=== PATIENT | male | born 1975 | race Caucasian/White ===

== ENCOUNTER 2017-12-16 16:10 | Observation (INO) | payer OTHER ==
[~2017-12-16] VITALS: Ht 180.3 cm; Wt 89.9 kg
[~2017-12-16 16:10] MED LIST: IBUP1TAB5 PO; PRIL20TA2 PO
[2017-12-16] MEDS ORDERED: NALOXONE HCL 0.4 MG/ML AMP IV PUSH PRN (17:15)
[2017-12-16] MEDS ORDERED: MAGNESIUM HYDROXIDE SUSP 30 ML CUP PO PRN (17:15)
[2017-12-16] MEDS ORDERED: SODIUM CHLORIDE 0.9% FLUSH 10 ML FLUSH IV FLUSH PRN (17:15)
--- NOTE | 2017-12-16 17:20 | HHI.HP ---
[facility] Primary [facility] Physician No Primary Care Physician Admission Diagnosis Diagnoses: Chief Complaint: Abdominal pain with hematemesis Travel History International Travel<30 Days: No Contact w/Intl Traveler <30 Da: No Traveled to Known Affected Are: No History of Present Illness This is a 42-year-old Male with a history of esophageal stricture status post stricture dilation several years ago. The patient presents today after having a large meal of pizza and soda with following, pressure in the chest relieved by vomiting which amounted to hematemesis yesterday. Overnight the patient has had no symptoms but this morning he did have large black stools. He notes no further chest pain if she felt better. He does have a history of taking Prilosec as well as NSAIDs. Patient came to the emergency room for further evaluation. His hemoglobin is stable. Patient is recommended for further evaluation by GI Review of Systems Constitutional: DENIES: Diaphoretic episodes, Fatigue, Fever, Weight gain, Weight loss, Chills, Dizziness, Change in appetite, Night Sweats Endocrine: DENIES: Heat/cold intolerance, Polydipsia, Polyuria, Polyphagia Eyes: DENIES: Blurred vision, Diplopia, Eye inflammation, Eye pain, Vision loss , Photosensitivity, Double Vision Ears, nose, mouth, throat: DENIES: Tinnitus, Hearing loss, Vertigo, Nasal discharge, Oral lesions, Throat pain, Hoarseness, Ear Pain, Running Nose, Epistaxis, Sinus Pain, Toothache, Odynophagia Respiratory: DENIES: Apneas, Cough, Snoring, Wheezing, Hemoptysis, Sputum production, Shortness of breath Cardiovascular: DENIES: Chest pain, Palpitations, Syncope, Dyspnea on Exertion , PND, Lower Extremity Edema, Orthopnea, Claudication Gastrointestinal: COMPLAINS OF: Abdominal pain, Black stools, DENIES: Bloody stools, Constipation, Diarrhea, Nausea, Vomiting, Difficulty Swallowing, Anorexia Genitourinary: DENIES: Sexual dysfunction, Urinary frequency, Urinary incontinence, Urgency, Hematuria, Dysuria, Nocturia, Penile Discharge, Testicular Pain, Testicular Swelling Musculoskeletal: DENIES: Joint pain, Muscle aches, Stiffness, Joint Swelling, Back pain, Neck pain Integumentary: DENIES: Abnormal pigmentation, Nail changes, Pruritus, Rash Hematologic/lymphatic: DENIES: Bruising, Lymphadenopathy Immunologic/allergic: DENIES: Eczema, Urticaria Neurologic: DENIES: Abnormal gait, Headache, Localized weakness, Paresthesias, Seizures, Speech Problems, Tremor, Poor Balance Psychiatric: DENIES: Anxiety, Confusion, Mood changes, Depression, Hallucinations, Agitation, Suicidal Ideation, Homicidal Ideation, Delusions Except as stated in HPI: all other systems reviewed are Neg Past Family Social History Past Medical History History of esophageal stricture and dyspepsia and reflux Past Surgical History Tonsils Lung surgery Reported Medications Reviewed in the EMR Allergies: Coded Allergies: No Known Allergies (Unverified , 12/16/17) Active Ordered Medications Reviewed in the EMR Family History Mother passed from unknown causes, father is alive but has lung cancer Social History Quit tobacco 20 years ago, alcohol 6 pack daily This with his girlfriend Is employed as a echocardiography tech Physical Exam Physical Exam GENERAL: This is a well-nourished, well-developed patient, in no apparent distress. SKIN: No rashes, ecchymoses or lesions. Cool and dry. HEAD: Atraumatic. Normocephalic. No temporal or scalp tenderness. EYES: Pupils equal round and reactive. Extraocular motions intact. No scleral icterus. No injection or drainage. ENT: Nose without bleeding, purulent drainage or septal hematoma. Throat without erythema, tonsillar hypertrophy or exudate. Uvula midline. Airway patent. NECK: Trachea midline. No JVD or lymphadenopathy. Supple, nontender, no meningeal signs. CARDIOVASCULAR: Regular rate and rhythm without murmurs, gallops, or rubs. RESPIRATORY: Clear to auscultation. Breath sounds equal bilaterally. No wheezes , rales, or rhonchi. GASTROINTESTINAL: Abdomen soft, non-tender, nondistended. No hepato-splenomegaly , or palpable masses. No guarding. MUSCULOSKELETAL: Extremities without clubbing, cyanosis, or edema. No joint tenderness, effusion, or edema noted. No calf tenderness. Negative Homans sign bilaterally. NEUROLOGICAL: Awake and alert. Cranial nerves II through XII intact. Motor and sensory grossly within normal limits. Five out of 5 muscle strength in all muscle groups. Normal speech. Caprini VTE Risk Assessment Caprini VTE Risk Assessment: No/Low Risk (score <= 1) Caprini Risk Assessment Model Point Value = 1 Point Value = 2 Point Value = 3 Point Value = 5 Age 41-60 Minor surgery BMI > 25 kg/m2 Swollen legs Varicose veins or History of unexplained or recurrent spontaneous Oral contraceptives or hormone replacement Sepsis (< 1 month) Serious lung disease, including pneumonia (< 1 month) Abnormal pulmonary function Acute myocardial infarction Congestive heart failure (< 1 month) History of inflammatory bowel disease Medical patient at bed rest Age 61-74 Arthroscopic surgery Major open surgery (> 45 min) Laparoscopic surgery (> 45 min) Malignancy Confined to bed (> 72 hours) Immobilizing plaster cast Central venous access Age >= 75 History of VTE Family history of VTE Factor V Leiden Prothrombin [id number] Lupus anticoagulant Anticardiolipin antibodies Elevated serum homocysteine Heparin-induced thrombocytopenia Other congenital or acquired thrombophilia Stroke (< 1 month) Elective arthroplasty Hip, pelvis, or leg fracture Acute spinal cord injury (< 1 month) Prophylaxis Regimen Total Risk Factor Score Risk Level Prophylaxis Regimen 0-1 Low Early ambulation 2 Moderate Order ONE of the following: *Sequential Compression Device (SCD) *Heparin 5000 units SQ BID 3-4 Higher Order ONE of the following medications: *Heparin 5000 units SQ TID *Enoxaparin/Lovenox 40 mg SQ daily (WT < 150 kg, CrCl > 30 mL/min) *Enoxaparin/Lovenox 30 mg SQ daily (WT < 150 kg, CrCl > 10-29 mL/min) *Enoxaparin/Lovenox 30 mg SQ BID (WT < 150 kg, CrCl > 30 mL/min) AND/OR *Sequential Compression Device (SCD) 5 or more Highest Order ONE of the following medications: *Heparin 5000 units SQ TID (Preferred with Epidurals) *Enoxaparin/Lovenox 40 mg SQ daily (WT < 150 kg, CrCl > 30 mL/min) *Enoxaparin/Lovenox 30 mg SQ daily (WT < 150 kg, CrCl > 10-29 mL/min) *Enoxaparin/Lovenox 30 mg SQ BID (WT < 150 kg, CrCl > 30 mL/min) AND *Sequential Compression Device (SCD) Assessment and Plan Problem List: (1) GI bleed ICD Code: K92.2 - Gastrointestinal hemorrhage, unspecified Plan: Patient take NSAIDs regularly With a history of dyspepsia and on a proton pump inhibitor We'll continue proton pump inhibitor patient avoid NSAIDs, GI consult for EGD Follow hemoglobin Code Status full code Discussed Condition With patient er Erin Schuster MD Dec 16, 2017 17:20
[2017-12-16 18:00] VITALS: BP 122/83; PULSE 84; RESP 16; TEMP 99; O2SAT 98
[2017-12-16] MEDS: SODIUM CHLOR 0.9% 1000 ML INJ 1,000 ML IV SCH (18:45)
[2017-12-16 20:00] VITALS: BP 115/76; PULSE 88; RESP 21; TEMP 98.2; O2SAT 100
[2017-12-16] MEDS: SODIUM CHLORIDE 0.9% FLUSH 10 ML FLUSH IV FLUSH SCH (21:08)
[2017-12-16] MEDS: PANTOPRAZOLE SOD 40 MG DELAYED RELEASE TAB PO SCH (21:08)
[2017-12-17] VITALS: BP 118/79; PULSE 79; RESP 18; TEMP 98; O2SAT 100
[2017-12-17] MEDS: SODIUM CHLOR 0.9% 1000 ML INJ 1,000 ML IV SCH (05:02)
[2017-12-17 06:18] LABS: AUTOMATED NEUTROPHIL # 1.3 TH/MM3 (1.8-7.7); BASOPHIL % 0.5 % (0.0-2.0); EOSINOPHIL # 0.1 TH/MM3 (0-0.4); EOSINOPHIL % 2.4 % (0.0-4.0); HEMATOCRIT 27.4 % (39.0-51.0); HEMOGLOBIN 9.1 GM/DL (13.0-17.0); LYMPH % 35.5 % (9.0-44.0); MEAN CELL VOLUME 86.4 FL (80.0-100.0); MEAN CORPUSCULAR HEMOGLOBIN 28.8 PG (27.0-34.0); MEAN CORPUSCULAR HGB CONC 33.3 % (32.0-36.0); MEAN PLATELET VOLUME 8.4 FL (7.0-11.0); MONO % 12.4 % (0.0-8.0); MONOCYTE # 0.3 TH/MM3 (0-0.9); NEUT % 49.2 % (16.0-70.0); PLATELET COUNT 113 TH/MM3 (150-450); RED BLOOD COUNT 3.17 MIL/MM3 (4.50-5.90); RED CELL DISTRIBUTION WIDTH 14.4 % (11.6-17.2); WHITE BLOOD COUNT 2.7 TH/MM3 (4.0-11.0)
[2017-12-17] MEDS ORDERED: LACTATED RINGER'S 1000 ML IV PRN (07:00)
[2017-12-17 08:00] VITALS: BP 114/75; PULSE 77; RESP 16; TEMP 96.7; O2SAT 99
[2017-12-17] MEDS: SODIUM CHLORIDE 0.9% FLUSH 10 ML FLUSH IV FLUSH SCH (08:13)
[2017-12-17] MEDS: PANTOPRAZOLE SOD 40 MG DELAYED RELEASE TAB PO SCH (09:04)
[2017-12-17 12:00] VITALS: BP 110/72; PULSE 74; RESP 16; TEMP 98; O2SAT 100
--- NOTE | 2017-12-17 12:58 | HHI.PR ---
Subjective Remarks patient seen in follow-up for abdominal pain with hematemesis. No further episodes. Hemoglobin 9.1 today Objective Vitals Vital Signs Date Time Temp Pulse Resp B/P (MAP) Pulse Ox O2 Delivery O2 Flow Rate FiO2 12/17/17 12:00 98.0 74 16 110/72 (85) 100 12/17/17 08:00 96.7 77 16 114/75 (88) 99 12/17/17 00:00 98.0 79 18 118/79 (92) 100 12/16/17 20:00 98.2 88 21 115/76 (89) 100 12/16/17 18:00 99.0 84 16 122/83 (96) 98 I/O 12/16/17 12/16/17 12/16/17 12/17/17 12/17/17 12/17/17 07:00 15:00 23:00 07:00 15:00 23:00 Intake Total 1000 ml Balance 1000 ml Intake IV Total 1000 ml # Voids 0 # Bowel Movements 0 Result Diagram: 12/17/17 0445 Objective Remarks GENERAL: This is a well-nourished, well-developed patient, in no apparent distress. CARDIOVASCULAR: Regular rate and rhythm without murmurs, gallops, or rubs. RESPIRATORY: Clear to auscultation. Breath sounds equal bilaterally. No wheezes , rales, or rhonchi. GASTROINTESTINAL: Abdomen soft, non-tender, nondistended. Normal active bowel sounds MUSCULOSKELETAL: Extremities without clubbing, cyanosis, or edema. NEURO: Alert & Oriented x4 to person, place, time, situation. Moves all ext x4 A/P Problem List: (1) GI bleed ICD Code: K92.2 - Gastrointestinal hemorrhage, unspecified Plan: Patient take NSAIDs regularly With a history of dyspepsia and on a proton pump inhibitor We'll continue proton pump inhibitor patient avoid NSAIDs, GI for EGD Hemoglobin 9.1 today with no further bleeding noted Discharge Planning Hopefully discharge pending EGD Erin Garcia MD Dec 17, 2017 12:58
[2017-12-17 13:50] VITALS: BP 113/84; PULSE 91; RESP 18; TEMP 98.4; O2SAT 100
[2017-12-17] MEDS ORDERED: PROPOFOL 200 MG/20 ML AMP ONE ×2 (15:09→15:11)
--- NOTE | 2017-12-17 15:28 | GIPROC ---
[address], [address] EGD PROCEDURE REPORT EXAM DATE: 12/17/2017 PATIENT NAME: Kendrick Del Valle MR #: [id number] BIRTHDATE: 1975 ATTENDING: Rufina Houston MD ORDER #: [id number] EMISSION SPECIALIST: [place] [employer] STATUS: inpatient INDICATIONS: The patient is a 42 yr old male here for an EGD due to gi bleeding , reflux PROCEDURE PERFORMED: EGD w/ biopsy MEDICATIONS: None and Per Anesthesia. TOPICAL ANESTHETIC: none CONSENT: The patient understands the risks and benefits of the procedure and understands that these risks include, but are not limited to: sedation, allergic reaction, infection, perforation and/or bleeding. Alternative means of evaluation and treatment include, among others: physical exam, x-rays, and/or surgical intervention. The patient elects to proceed with this endoscopic procedure. medical equipment was checked for proper function. Hand hygiene and appropriate measures for infection prevention was taken. After the risks, benefits and alternatives of the procedure were thoroughly explained, Informed consent was verified, confirmed and timeout was successfully executed by the treatment team. The patient was anesthetized with topical anesthesia and the endoscope was introduced through the mouth and advanced to the second portion of the duodenum. Retroflexed views revealed a hiatal hernia The gastroscope was then slowly withdrawn and removed. Gastritis antrum-biopsy irregular z line-biopsy linear ulcer -starting in mid esophagus and extending over 5 cm. ADVERSE EVENTS: There were no complications. IMPRESSIONS: 1. Gastritis antrum-biopsy irregular z line-biopsy linear ulcer -starting in mid esophagus and extending over 5 cm 2. Retroflexed views revealed a hiatal hernia RECOMMENDATIONS: 1. Await biopsy results. Biopsy results will not be ready for 7-10 days. If you don't hear from us in two weeks, call our office for biopsy results. 2. Anti-reflux regimen 3. Ppi-bid soft diet chew food well ok to dc home from gi point- if discharged today cannot drive-24 hrs PATIENT CONDITION: stable DISPOSITION: Inpatient REPEAT EXAM: Return 6 weeks EGD with dilatation Rufina Houston MD eSigned: Rufina Houston MD 12/17/2017 3:28 PM cc: PATIENT NAME: Kendrick Del Valle MR#: [id number]
[2017-12-17] MEDS ORDERED: PANT40TA3 PO (15:34)
--- NOTE | 2017-12-17 15:35 | HHI.DCPOC ---
Discharge Care Plan Diagnosis: (1) Gastritis (2) Esophageal ulcer (3) Esophagitis Goals to Promote Your Health * To prevent worsening of your condition and complications * To maintain your health at the optimal level Directions to Meet Your Goals Take your medications as prescribed Follow your dietary instruction Follow activity as directed Keep your appointments as scheduled Take your immunizations and boosters as scheduled If your symptoms worsen call your PCP, if no PCP go to Urgent Care Center or Emergency Room Smoking is Dangerous to Your Health. Avoid second hand smoke Call the 24-hour hour crisis hotline for domestic abuse at Erin Garcia MD Dec 17, 2017 15:35
[2017-12-17 16:00] VITALS: BP 122/81; PULSE 78; RESP 16; TEMP 97.8; O2SAT 99
--- NOTE | 2017-12-17 17:02 | MB ---
cc: ANITA QUIROZ M.D. DATE OF CONSULTATION: 12/17/2017 REFERRING PHYSICIAN: rEin Garcia MD. REASON FOR CONSULTATION: GI bleed. HISTORY OF PRESENT ILLNESS: Mr. Del Valle is a very pleasant 42-year-old gentleman with history of esophageal stricture and reflux, status post dilatation in 2000. The patient stated that he was having a large meal consisting of pizza and soda, he developed some pressure in the chest and it was relieved by vomiting. At that time he also vomited some blood which was fresh and clotted. The patient got better overnight after he vomited his meal but in the morning he had some black tarry stool. He came to the emergency room for further evaluation and treatment. He currently he is feeling well. Denies any nausea, vomiting, abdominal pain further melena, constipation or diarrhea. PAST MEDICAL HISTORY Esophageal stricture history of mediastinal and nodes status post mediastinoscopy biopsy benign as per patient. PAST SURGICAL HISTORY Tonsillectomy lung surgery. MEDICATIONS AT HOME He is taking Omeprazole. ALLERGIES No known allergies. FAMILY HISTORY No family history of colon cancer or any other GI pathology. SOCIAL HISTORY Alcohol six pack daily. Quit smoking 20 years ago. REVIEW OF SYSTEMS He denies any fever or chills, weight loss or weight gain. ENT: No alteration in baseline hearing or visual acuity PULMONARY: Denies any chest pain, shortness of breath. GASTROINTESTINAL: As above. GENITOURINARY: Denies dysuria, hematuria. HEMATOLOGIC: No history of anemia or bleeding disorder. SKIN: No alteration in baseline skin lesion. NEUROLOGIC: No history of TIA or CVA kind of symptoms. PHYSICAL EXAMINATION: IN GENERAL: On clinical exam he is sitting comfortably in bed in no acute distress. VITAL SIGNS: Temperature is 94, pulse is 91, respiration 18, blood pressure 113/84, Pulse 100 HEAD, EYES, EARS, NOSE, AND THROAT: Pupils equal, round, reactive to light and accommodation. NECK: No jugular venous distention, no lymphadenopathy. CHEST: Clear to the patient and palpation. CARDIOVASCULAR SYSTEM: S1, s2, No murmur. ABDOMEN: Abdomen is soft, nontender. Bowel sounds are present. CENTRAL NERVOUS SYSTEM: Awake, alert, oriented x3. No focal signs identified. LABORATORY FINDINGS: His labs were reviewed. IMPRESSION Upper GI bleed most likely Lore Timmons tear or esophageal ulcer less likely other pathology reflux, dysphagia most likely secondary to an esophageal stricture, mild anemia, unclear if this is new or not. He seems to have pancytopenia suspect possible underlying maybe liver disease. RECOMMENDATIONS Start PPI b.i.d. Monitor H&H closely. Transfuse p.r.n. Upper endoscopy with possible dilatation will be schedule today If he is discharged, the patient will need further workup for underlying liver disease, that would include endoscopy and blood work. Avoid alcohol and NSAIDs. I like to thank Dr. Garcia for referring him to our office for consultation. Further recommendation will depend on the patient's clinical status and the above results. Thank you. MD JILL LyonB/effie /3:40 PM /4:18 PM
== END 2017-12-17 17:32 | disposition home or self-care (01) ==
LOC: PHEDDLT 16:10 → PHEDA 16:11 → INTOOBSV 16:11 → PH3A 16:11 → UNDOADMIN 16:11
PROVIDERS: ADMIT Hospitalist; ATTEND Hospitalist
DX: K29.70 Gastritis, unspecified, without bleeding (principal); K22.10 Ulcer of esophagus without bleeding; K21.0 Gastro-esophageal reflux disease with esophagitis; K22.6 Gastro-esophageal laceration-hemorrhage syndrome; K22.2 Esophageal obstruction; R10.13 Epigastric pain; D50.0 Iron deficiency anemia secondary to blood loss (chronic); R10.9 Unspecified abdominal pain; D61.818 Other pancytopenia; R13.10 Dysphagia, unspecified; K44.9 Diaphragmatic hernia without obstruction or gangrene; Z87.891 Personal history of nicotine dependence
CPT/HCPCS: 00731; 43239; 80053; 80307; 82272; 85025; 85610; 85730; 88305; 88312; 96360; 96361; 96374; 99285; C9113; G0378; J7030